=== PATIENT | female | born 1950 | race Caucasian/White ===

== ENCOUNTER 2022-09-27 16:30 | Emergency (ER) | payer MEDICARE ==
[~2022-09-27] VITALS: Ht 160 cm; Wt 67.7 kg
[~2022-09-27 16:30] MED LIST: ACET-1008 PO; ASPI-1264 PO; CHOL100010 PO; DULO-31 PO; HYDR25SU33 RC; LANS30CA37 PO; LIDO700A22 TP; LOP25T PO; LYR25C PO; NITR0.4T48 SL; PRED20TA PO; ZET10T PO
[2022-09-27 16:56] VITALS: BP 161/99; PULSE 70; RESP 20; TEMP 96.9; O2SAT 97
[2022-09-27] MEDS: HYDROcodone/acetaminophen 5mg/325mg tablet PO ONE (19:55)
== END 2022-09-27 20:23 | disposition home or self-care (01) ==
LOC: ER 16:32
DX: M25.531 Pain in right wrist (principal); Z88.5 Allergy status to narcotic agent; Z91.041 Radiographic dye allergy status; Z79.82 Long term (current) use of aspirin; Z79.899 Other long term (current) drug therapy; W19.XXXA Unspecified fall, initial encounter; Y93.89 Activity, other specified; Y92.89 Other specified places as the place of occurrence of the external cause; Y99.8 Other external cause status
CPT/HCPCS: 29125; 72170; 73030; 73110; 99284